=== PATIENT | male | born 1990 | race Caucasian/White ===

== ENCOUNTER 2018-12-21 12:29 | Emergency (ER) | payer OTHER ==
[~2018-12-21] VITALS: Ht 182.9 cm; Wt 92.1 kg
[2018-12-21 12:39] VITALS: Ht 182.9 cm; Wt 92.1 kg
[2018-12-21 13:08] LABS: BASOPHIL % 0.5 % (0-2); PLATELET COUNT 280 x10^3mcL (130-400); RED CELL DISTRIBUTION WIDTH 12.8 % (11.5-14.5)
[2018-12-21 13:34] LABS: CARBON DIOXIDE 30.7 mmol/L (21-32); CHLORIDE SERUM 101 mmol/L (98-107); CREATININE SERUM 1.1 mg/dL (0.7-1.3); GFR1 > 60 mL/min; GLUCOSE SERUM 155 mg/dL (74-106); POTASSIUM SERUM 4.6 mmol/L (3.5-5.1); SODIUM SERUM 140 mmol/L (136-145)
[2018-12-21 13:38] LABS: ALKALINE PHOSPHATASE 72 U/L (46-116); ALT/SGPT 47 U/L (16-63); AST/SGOT 35 U/L (15-37)
[2018-12-21 13:39] LABS: TOTAL PROTEIN, SERUM 8.5 g/dL (6.4-8.2)
[2018-12-21 17:21] VITALS: BP 133/88
== END 2018-12-21 18:10 | disposition home or self-care (01) ==
LOC: ED 12:29
DX: K62.5 Hemorrhage of anus and rectum (principal); I11.0 Hypertensive heart disease with heart failure; E11.9 Type 2 diabetes mellitus without complications; Z88.0 Allergy status to penicillin
CPT/HCPCS: 36415